=== PATIENT | female | born 1955 | race Caucasian/White ===

== ENCOUNTER 2016-04-26 15:01 | Inpatient (IN) | payer MEDICARE ==
[~2016-04-26] VITALS: Wt 86.2 kg
[~2016-04-26 15:01] MED LIST: ALDACTONE 25MG25 M1 PO; ALTACE 10MG TAB10 MG PO; AMANTADINE HCL100 M1 PO; ASPIRIN 32325 MG/TAB PO; CALTRATE-600 W600 MG PO; COPAXONE SL; COREG 25MG25 MG/TAB PO; COREG 6.256.25 MG/TA PO; FOLIC ACID; GABAPENTIN300 M1 PO; MULTIPLE VITAMI1 CAP PO; MVI; NEURONTIN300 MG/CAP PO; NORVASC 10MG10 MG PO; PROTONIX 40MG T40 MG PO; RAPINIROLE; REQUIP 0.5MG0.5 MG PO; REQUIP 1MG T1 MG/TAB PO; SAVELLA100 MG PO; TYLENOL 500MG500 MG PO; ZINC
[2016-04-26 15:49] LABS: BASO # 0.1 (0.0-0.2); BASO % 0.4 % (0.0-2.0); EOS # 0.1 (0.0-0.7); EOS % 1.1 % (0-4.0); GRAN # 8.8 (1.4-6.5); GRAN % 75.3 % (42.2-75.2); HEMATOCRIT 41.3 % (37.0-47.0); HEMOGLOBIN 13.5 g/dl (12.5-16.0); LYMPH # 1.5 (1.2-3.4); LYMPH % 13.3 % (20.0-51.0); MEAN CELL VOLUME 89 fl (80.0-100.0); MEAN CORPUSCULAR HEMOGLOBIN 29 pg (27.0-31.0); MEAN CORPUSCULAR HGB CONC 33 g/dl (33.0-37.0); MEAN PLATELET VOLUME 9.9 fl (7.4-10.4); MONO # 1.1 (0.1-0.6); MONO % 9.5 % (1.7-9.3); PLATELET COUNT 244 K/mm3 (130-400); RED BLOOD COUNT 4.62 M/mm3 (4.10-5.30); REDCELL DISTRIBUTION WIDTH-CV 12.2 % (11.5-14.5); WHITE BLOOD COUNT 11.6 K/mm3 (4.8-10.8)
[2016-04-26 16:10] LABS: ADJUSTED CALCIUM 9.2 mg/dL (8.4-10.2); BILIRUBIN,TOTAL 0.8 mg/dL (0.0-1.0); CALCIUM 9.2 mg/dL (8.4-10.2); CREATININE, serum 0.93 mg/dL (0.52-1.25); POTASSIUM 3.3 mmol/L (3.4-5.0); TOTAL PROTEIN 7.7 gm/dL (6.4-8.2)
[2016-04-26 19:22] LABS: TROPONIN-I 0.045 ng/mL (0.000-0.034)
[2016-04-26 20:05] VITALS: BP 129/59; PULSE 70; TEMP 100
[2016-04-26] MEDS ORDERED: NEURONTIN600 MG/TAB PO (20:32)
[2016-04-26 23:38] VITALS: BP 145/87; PULSE 118; TEMP 100.5
[2016-04-27 03:29] VITALS: BP 114/78; PULSE 99; TEMP 98.9
[2016-04-27 05:29] LABS: PH 7 (5-8); SQUAMOUS EPITHELIAL 0-2 /hpf; URINE APPEARANCE Clear; URINE BACTERIA None Seen /hpf; URINE BILIRUBIN Negative (NEGATIVE); URINE BLOOD 2+ (NEGATIVE); URINE COLOR Yellow; URINE GLUCOSE Negative (NEGATIVE); URINE KETONE Negative (NEGATIVE); URINE UROBILINOGEN Negative (NEGATIVE)
[2016-04-27 07:21] LABS: BASO # 0.1 (0.0-0.2); BASO % 0.6 % (0.0-2.0); EOS # 0.2 (0.0-0.7); EOS % 2.7 % (0-4.0); GRAN # 5.6 (1.4-6.5); GRAN % 67.4 % (42.2-75.2); HEMATOCRIT 37.5 % (37.0-47.0); LYMPH # 1.5 (1.2-3.4); LYMPH % 17.7 % (20.0-51.0); MEAN CELL VOLUME 91 fl (80.0-100.0); MEAN CORPUSCULAR HEMOGLOBIN 29 pg (27.0-31.0); MEAN CORPUSCULAR HGB CONC 32 g/dl (33.0-37.0); MEAN PLATELET VOLUME 10.1 fl (7.4-10.4); MONO # 0.9 (0.1-0.6); MONO % 11.2 % (1.7-9.3); PLATELET COUNT 212 K/mm3 (130-400); RED BLOOD COUNT 4.14 M/mm3 (4.10-5.30); REDCELL DISTRIBUTION WIDTH-CV 12.3 % (11.5-14.5); WHITE BLOOD COUNT 8.3 K/mm3 (4.8-10.8)
[2016-04-27 07:28] VITALS: BP 118/72; PULSE 104; TEMP 98.5
[2016-04-27 07:34] LABS: CALCIUM 8.6 mg/dL (8.4-10.2); CREATININE, serum 0.78 mg/dL (0.52-1.25)
[2016-04-27 07:44] LABS: TROPONIN-I 0.024 ng/mL (0.000-0.034)
[2016-04-27 12:14] VITALS: BP 107/79; PULSE 96; TEMP 98.4
[2016-04-27 15:56] VITALS: BP 114/62; PULSE 92; TEMP 97.9
[2016-04-27 19:27] VITALS: BP 124/81; PULSE 93; TEMP 97.2
[2016-04-27 23:48] VITALS: BP 134/67; PULSE 118
[2016-04-28 03:07] VITALS: BP 134/75; PULSE 102; TEMP 98.4
[2016-04-28 08:06] VITALS: BP 135/69; PULSE 103; TEMP 99
[2016-04-28 11:46] VITALS: BP 146/87; PULSE 98; TEMP 98
[2016-04-28] MEDS ORDERED: COUMADIN 5MG5 MG/TAB PO (14:22)
[2016-04-28] MEDS ORDERED: LOVENOX 100100 MG/ML SQ (14:24)
[2016-04-28] MEDS ORDERED: NORCO 325 MG-51 TAB PO (14:24)
[2016-04-28 16:08] VITALS: BP 138/70; PULSE 94; TEMP 99.1
[2016-04-29] MEDS ORDERED: REQUIP 1MG T1 MG/TAB PO (20:02)
[2016-04-29] MEDS ORDERED: REQUIP2 MG PO (20:02)
[2016-04-29] MEDS ORDERED: ADULT MULTIVIT1 EACH PO (20:03)
== END 2016-04-28 17:42 | disposition home or self-care (01) | DRG 300 ==
LOC: COL.ER 15:01 → MEDICAL 18:13
PROVIDERS: Emergency Medicine; Nurse Practitioner Family
DX: I82.B12 Acute embolism and thrombosis of left subclavian vein (principal); D68.51 Activated protein C resistance; G35 Multiple sclerosis; I10 Essential (primary) hypertension; Z95.0 Presence of cardiac pacemaker; E87.6 Hypokalemia
CPT/HCPCS: 99222-AI; 99239; C9113; G0378; J1170; J1650; J7030; Q9967

== ENCOUNTER 2016-04-29 18:39 | Inpatient (IN) | payer MEDICARE ==
[~2016-04-29] VITALS: Ht 172.7 cm; Wt 85.5 kg
[~2016-04-29 18:39] MED LIST changes: -ADULT MULTIVIT1 EACH PO; -BENTYL 10MG10 MG/CAP PO; -BYSTOLIC10 MG PO; -CLEOCIN HCL300 MG PO; -COUMADIN 22.5 MG/TAB PO; -ELIQUIS 5MG PO; -FLAGYL500 MG PO; -REQUIP2 MG PO
[2016-04-29] MEDS ORDERED: REQUIP2 MG PO (20:02)
[2016-04-29] MEDS ORDERED: REQUIP 1MG T1 MG/TAB PO (20:02)
[2016-04-29] MEDS ORDERED: ADULT MULTIVIT1 EACH PO (20:03)
[2016-04-29 21:05] LABS: SQUAMOUS EPITHELIAL 0-2 /hpf; URINE BACTERIA None Seen /hpf; URINE WBC 0-2 /hpf
[2016-04-29 21:10] LABS: PH 5 (5-8); URINE APPEARANCE Clear; URINE BILIRUBIN Negative (NEGATIVE); URINE BLOOD Negative (NEGATIVE); URINE COLOR Yellow; URINE GLUCOSE Negative (NEGATIVE); URINE KETONE Trace (NEGATIVE)
[2016-04-29 21:46] LABS: BASO # 0.1 (0.0-0.2); BASO % 0.3 % (0.0-2.0); EOS % 0.2 % (0-4.0); GRAN # 12.9 (1.4-6.5); GRAN % 84.6 % (42.2-75.2); LYMPH # 1.1 (1.2-3.4); LYMPH % 7.5 % (20.0-51.0); MEAN CELL VOLUME 90 fl (80.0-100.0); MEAN CORPUSCULAR HGB CONC 33 g/dl (33.0-37.0); MEAN PLATELET VOLUME 9.7 fl (7.4-10.4); MONO # 1.1 (0.1-0.6); PLATELET COUNT 241 K/mm3 (130-400); RED BLOOD COUNT 3.95 M/mm3 (4.10-5.30); REDCELL DISTRIBUTION WIDTH-CV 11.9 % (11.5-14.5); WHITE BLOOD COUNT 15.3 K/mm3 (4.8-10.8)
[2016-04-29 21:48] LABS: HEMATOCRIT 35.6 % (37.0-47.0); HEMOGLOBIN 11.7 g/dl (12.5-16.0); MEAN CORPUSCULAR HEMOGLOBIN 30 pg (27.0-31.0)
[2016-04-29 21:58] LABS: ALBUMIN 3.5 gm/dL (3.5-5.0); BILIRUBIN,TOTAL 0.7 mg/dL (0.0-1.0); C-REACTIVE PROTEIN 8.8 mg/dL (0.0-0.9); CALCIUM 8.6 mg/dL (8.4-10.2); CREATININE, serum 0.86 mg/dL (0.52-1.25); POTASSIUM 3.8 mmol/L (3.4-5.0); TOTAL PROTEIN 7.2 gm/dL (6.4-8.2)
[2016-04-30 00:18] VITALS: BP 97/53; PULSE 59; TEMP 99.3
[2016-04-30 05:22] VITALS: BP 132/56; PULSE 92; TEMP 99.3
[2016-04-30 07:27] LABS: INR 2.9 (0.8-3.0); PROTHROMBIN TIME 33.5 SECONDS (9.7-12.8)
[2016-04-30 07:56] VITALS: BP 119/56; PULSE 128; TEMP 100.7
[2016-04-30 11:56] VITALS: BP 120/56; PULSE 64; TEMP 100.9
[2016-04-30 16:15] VITALS: BP 136/64; PULSE 108; TEMP 98; TEMP 99.4
[2016-04-30 20:40] VITALS: BP 122/56; PULSE 65; TEMP 101.9
[2016-05-01] VITALS (7 sets, daily range): BP systolic 122–160; BP diastolic 55–94; PULSE 62–100; TEMP 97.9–100.7
[2016-05-01 06:55] LABS: BASO % 0.3 % (0.0-2.0); EOS # 0.2 (0.0-0.7); EOS % 2.5 % (0-4.0); GRAN # 6.7 (1.4-6.5); GRAN % 71.3 % (42.2-75.2); LYMPH # 1.3 (1.2-3.4); LYMPH % 14.1 % (20.0-51.0); MEAN CELL VOLUME 91 fl (80.0-100.0); MEAN CORPUSCULAR HGB CONC 32 g/dl (33.0-37.0); MEAN PLATELET VOLUME 10.2 fl (7.4-10.4); MONO # 1.1 (0.1-0.6); MONO % 11.4 % (1.7-9.3); PLATELET COUNT 202 K/mm3 (130-400); RED BLOOD COUNT 3.47 M/mm3 (4.10-5.30); REDCELL DISTRIBUTION WIDTH-CV 12.3 % (11.5-14.5); WHITE BLOOD COUNT 9.4 K/mm3 (4.8-10.8)
[2016-05-01 07:00] LABS: HEMATOCRIT 31.5 % (37.0-47.0); HEMOGLOBIN 10.2 g/dl (12.5-16.0); MEAN CORPUSCULAR HEMOGLOBIN 29 pg (27.0-31.0)
[2016-05-01 07:10] LABS: CALCIUM 7.2 mg/dL (8.4-10.2); CREATININE, serum 0.73 mg/dL (0.52-1.25); POTASSIUM 3.1 mmol/L (3.4-5.0)
[2016-05-01 07:23] LABS: INR 7.1 (0.8-3.0); PROTHROMBIN TIME 83.9 SECONDS (9.7-12.8)
[2016-05-02 04:36] VITALS: BP 143/78; PULSE 97; TEMP 98.2
[2016-05-02 07:45] LABS: BASO % 0.3 % (0.0-2.0); EOS # 0.5 (0.0-0.7); EOS % 5.3 % (0-4.0); GRAN # 6.9 (1.4-6.5); GRAN % 71.8 % (42.2-75.2); LYMPH # 1.4 (1.2-3.4); LYMPH % 14.2 % (20.0-51.0); MEAN CELL VOLUME 88 fl (80.0-100.0); MEAN CORPUSCULAR HGB CONC 33 g/dl (33.0-37.0); MONO # 0.8 (0.1-0.6); PLATELET COUNT 265 K/mm3 (130-400); RED BLOOD COUNT 4.04 M/mm3 (4.10-5.30); WHITE BLOOD COUNT 9.6 K/mm3 (4.8-10.8)
[2016-05-02 07:49] LABS: INR 1.8 (0.8-3.0); PROTHROMBIN TIME 20.7 SECONDS (9.7-12.8)
[2016-05-02 07:50] LABS: HEMATOCRIT 35.7 % (37.0-47.0); HEMOGLOBIN 11.6 g/dl (12.5-16.0); MEAN CORPUSCULAR HEMOGLOBIN 29 pg (27.0-31.0)
[2016-05-02 08:42] VITALS: BP 151/92; PULSE 103; TEMP 98.8
[2016-05-02 08:43] LABS: CALCIUM 8.4 mg/dL (8.4-10.2); CREATININE, serum 0.61 mg/dL (0.52-1.25); POTASSIUM 3.5 mmol/L (3.4-5.0)
[2016-05-02 12:00] VITALS: BP 128/71; PULSE 76; TEMP 97.9
[2016-05-02 16:19] VITALS: BP 143/62; PULSE 70; TEMP 97.4
[2016-05-02 20:47] VITALS: BP 140/59; PULSE 77; TEMP 97.8
[2016-05-03 00:13] VITALS: BP 139/72; PULSE 89; TEMP 98.3
[2016-05-03 03:22] VITALS: BP 138/72; PULSE 80; TEMP 97.1
[2016-05-03 09:06] VITALS: BP 136/80; PULSE 85; TEMP 98.1
[2016-05-03 11:20] LABS: CALCIUM 8.6 mg/dL (8.4-10.2); CREATININE, serum 0.63 mg/dL (0.52-1.25)
[2016-05-03 11:25] LABS: BASO % 0.7 % (0.0-2.0); EOS # 0.3 (0.0-0.7); EOS % 5.4 % (0-4.0); GRAN # 4.1 (1.4-6.5); GRAN % 68.8 % (42.2-75.2); HEMATOCRIT 38.4 % (37.0-47.0); HEMOGLOBIN 12.3 g/dl (12.5-16.0); INR 2.1 (0.8-3.0); LYMPH # 1.1 (1.2-3.4); LYMPH % 17.7 % (20.0-51.0); MEAN CELL VOLUME 89 fl (80.0-100.0); MEAN CORPUSCULAR HEMOGLOBIN 29 pg (27.0-31.0); MEAN CORPUSCULAR HGB CONC 32 g/dl (33.0-37.0); MEAN PLATELET VOLUME 9.9 fl (7.4-10.4); MONO # 0.4 (0.1-0.6); MONO % 6.6 % (1.7-9.3); PLATELET COUNT 350 K/mm3 (130-400); PROTHROMBIN TIME 23.9 SECONDS (9.7-12.8); RED BLOOD COUNT 4.31 M/mm3 (4.10-5.30); REDCELL DISTRIBUTION WIDTH-CV 12.1 % (11.5-14.5); WHITE BLOOD COUNT 5.9 K/mm3 (4.8-10.8)
[2016-05-03 11:28] LABS: POTASSIUM 2.7 mmol/L (3.4-5.0)
[2016-05-03 12:41] VITALS: BP 126/74; PULSE 106; TEMP 97.5
[2016-05-03 17:33] VITALS: BP 133/85; PULSE 99; TEMP 97
[2016-05-03 19:41] VITALS: BP 121/70; PULSE 92; TEMP 97.7
[2016-05-04 00:43] VITALS: BP 147/54; PULSE 74; TEMP 98.6
[2016-05-04 04:28] VITALS: BP 112/54; PULSE 109; TEMP 98.7
[2016-05-04 05:24] VITALS: BP 138/77; PULSE 77; TEMP 97.7
[2016-05-04 07:32] LABS: MEAN CELL VOLUME 89 fl (80.0-100.0); MEAN CORPUSCULAR HGB CONC 32 g/dl (33.0-37.0); PLATELET COUNT 370 K/mm3 (130-400); RED BLOOD COUNT 3.98 M/mm3 (4.10-5.30); REDCELL DISTRIBUTION WIDTH-CV 12.3 % (11.5-14.5); WHITE BLOOD COUNT 5.6 K/mm3 (4.8-10.8)
[2016-05-04 07:33] LABS: INR 2.3 (0.8-3.0); PROTHROMBIN TIME 25.8 SECONDS (9.7-12.8)
[2016-05-04 07:34] LABS: CALCIUM 8.8 mg/dL (8.4-10.2); CREATININE, serum 0.66 mg/dL (0.52-1.25); POTASSIUM 3.9 mmol/L (3.4-5.0)
[2016-05-04 07:37] LABS: ADD PATHOLOGY DIFF REVIEW NO; HEMATOCRIT 35.5 % (37.0-47.0); HEMOGLOBIN 11.4 g/dl (12.5-16.0); MEAN CORPUSCULAR HEMOGLOBIN 29 pg (27.0-31.0)
[2016-05-04 08:06] LABS: BAND 4 % (0-10); EOSINOPHIL 5 % (0-4); NEUTROPHILS 49 % (42.0-75.2); TOTAL CELLS COUNTED 100
[2016-05-04 08:37] VITALS: BP 141/74; PULSE 94; TEMP 97.9
[2016-05-04] MEDS ORDERED: BENTYL 10MG10 MG/CAP PO (10:44)
[2016-05-04] MEDS ORDERED: FLAGYL500 MG PO (10:44)
[2016-05-04] MEDS ORDERED: COUMADIN 22.5 MG/TAB PO (10:45)
[2016-05-04 12:02] VITALS: BP 149/92; PULSE 70
== END 2016-05-04 13:45 | disposition home or self-care (01) | DRG 300 ==
LOC: COL.ER 18:39 → MEDICAL 22:14
PROVIDERS: Emergency Medicine; Family Medicine; Internal Medicine; Internal Medicine Cardiovascular Disease; Nurse Practitioner Family
DX: I82.B12 Acute embolism and thrombosis of left subclavian vein (principal); D68.51 Activated protein C resistance; A04.7 Enterocolitis due to Clostridium difficile; I82.A12 Acute embolism and thrombosis of left axillary vein; I82.622 Acute embolism and thrombosis of deep veins of left upper extremity; I82.C12 Acute embolism and thrombosis of left internal jugular vein; I05.0 Rheumatic mitral stenosis; I10 Essential (primary) hypertension; Z95.0 Presence of cardiac pacemaker; L50.0 Allergic urticaria; T36.8X5A Adverse effect of other systemic antibiotics, initial encounter; E87.6 Hypokalemia
CPT/HCPCS: 99222-AI; 99232-AI; 99239; J0692; J0878; J1200; J1650; J2185; J2405; J3370; J7030; J7050

== ENCOUNTER → 2016-04-29 | Outpatient (CLI) | payer MEDICARE ==
[~2016-04-29] MED LIST changes: +ADULT MULTIVIT1 EACH PO; +BENTYL 10MG10 MG/CAP PO; +BYSTOLIC10 MG PO; +CLEOCIN HCL300 MG PO; +COUMADIN 22.5 MG/TAB PO; +COUMADIN 5MG5 MG/TAB PO; +ELIQUIS 5MG PO; +FLAGYL500 MG PO; +LOVENOX 100100 MG/ML SQ; +NEURONTIN600 MG/TAB PO; +NORCO 325 MG-51 TAB PO; +REQUIP2 MG PO
[2016-04-29 16:12] LABS: INR 1.4 (0.8-3.0); PROTHROMBIN TIME 15.1 SECONDS (9.7-12.8)
[2016-04-29 16:13] LABS: CREATININE, serum 0.91 mg/dL (0.52-1.25); POTASSIUM 4.2 mmol/L (3.4-5.0)
== END ==
LOC: COL.LAB 15:19
PROVIDERS: Physician Assistant
DX: E87.6 Hypokalemia (principal); I82.819 Embolism and thrombosis of superficial veins of unspecified lower extremity

== ENCOUNTER 2016-05-06 13:35 | Outpatient (RCR) | payer MEDICARE ==
[~2016-05-06 13:35] MED LIST changes: +ADULT MULTIVIT1 EACH PO; +BENTYL 10MG10 MG/CAP PO; +COUMADIN 22.5 MG/TAB PO; +FLAGYL500 MG PO; +REQUIP2 MG PO
[2016-05-06 14:01] LABS: INR 2.6 (0.8-3.0); PROTHROMBIN TIME 29.1 SECONDS (9.7-12.8)
== END 2016-08-04 | disposition still patient (30) ==
LOC: COL.LAB
PROVIDERS: Family Medicine
DX: R52 Pain, unspecified (principal)

== ENCOUNTER → 2016-06-05 | Outpatient (CLI) | payer MEDICARE ==
[~2016-06-05] MED LIST changes: +BYSTOLIC10 MG PO; +CLEOCIN HCL300 MG PO; +ELIQUIS 5MG PO
== END ==
LOC: COL.RAD 06-04 10:30
DX: G35 Multiple sclerosis (principal)
CPT/HCPCS: A9585

== ENCOUNTER → 2016-06-26 | Outpatient (CLI) | payer MEDICARE | LOC: COL.LAB 12:42 | DX: R53.83 Other fatigue (principal) ==

== ENCOUNTER → 2016-07-10 | Outpatient (CLI) | payer MEDICARE ==
[2016-07-10 10:18] LABS: CALCIUM 9.3 mg/dL (8.4-10.2); CREATININE, serum 0.86 mg/dL (0.52-1.25); POTASSIUM 3.2 mmol/L (3.4-5.0)
[2016-07-10 23:50] LABS: CORTISOL RANDOM 9 ug/dL (3-20)
[2016-07-11 18:41] LABS: POTASSIUM 3.2 mmol/L (3.4-5.0)
[2016-07-12 17:32] LABS: CREATININE URINE 41 mg/dL (())
[2016-07-12 18:28] LABS: CREATININE OTHER SOURCE 40 mg/dL (())
[2016-07-15 10:22] LABS: .METANEPHRINE <0.20 nmol/L (<0.50)
[2016-07-15 13:49] LABS: RENIN,PLASMA 1.1 ng/mL/h (())
== END ==
LOC: COL.VAS 08:00 → COL.LAB 08:04
PROVIDERS: Internal Medicine Interventional Cardiology
DX: I10 Essential (primary) hypertension (principal)

== ENCOUNTER 2016-07-28 15:00 | Outpatient (RCR) | payer MEDICARE ==
[~2016-07-28 15:00] MED LIST changes: -BYSTOLIC10 MG PO; -CLEOCIN HCL300 MG PO; -ELIQUIS 5MG PO
[2016-08-08] MEDS ORDERED: BYSTOLIC10 MG PO (12:06)
[2016-08-08] MEDS ORDERED: ELIQUIS 5MG PO (12:07)
[2016-08-08] MEDS ORDERED: CLEOCIN HCL300 MG PO (15:48)
== END 2016-08-07 09:46 | disposition home or self-care (01) ==
LOC: MKS.ESL.PT 15:00
DX: G35 Multiple sclerosis (principal); R25.2 Cramp and spasm
CPT/HCPCS: G8981-GP; G8982-GP; G8983-GP

== ENCOUNTER 2016-08-08 11:44 | Day surgery (SDC) | payer MEDICARE ==
[2016-08-08] VITALS (8 sets, daily range): BP systolic 117–152; BP diastolic 73–94; PULSE 65–81; TEMP 97.1–97.8
[~2016-08-08] VITALS: Ht 172.8 cm; Wt 82.7 kg
[2016-08-08] MEDS ORDERED: BYSTOLIC10 MG PO (12:06)
[2016-08-08] MEDS ORDERED: ELIQUIS 5MG PO (12:07)
[2016-08-08 12:44] LABS: INR 1.2 (0.8-3.0); PROTHROMBIN TIME 12.9 SECONDS (9.7-12.8)
[2016-08-08 13:05] LABS: HEMOGLOBIN 13.5 g/dl (12.5-16.0); MEAN CELL VOLUME 87 fl (80.0-100.0); MEAN CORPUSCULAR HEMOGLOBIN 29 pg (27.0-31.0); MEAN CORPUSCULAR HGB CONC 33 g/dl (33.0-37.0); MEAN PLATELET VOLUME 10.2 fl (7.4-10.4); PLATELET COUNT 232 K/mm3 (130-400); RED BLOOD COUNT 4.74 M/mm3 (4.10-5.30); REDCELL DISTRIBUTION WIDTH-CV 13.5 % (11.5-14.5); WHITE BLOOD COUNT 6.3 K/mm3 (4.8-10.8)
[2016-08-08 13:16] LABS: CALCIUM 9.5 mg/dL (8.4-10.2); CREATININE, serum 0.86 mg/dL (0.52-1.25); POTASSIUM 4.6 mmol/L (3.4-5.0)
[2016-08-08] MEDS ORDERED: CLEOCIN HCL300 MG PO (15:48)
== END 2016-08-08 17:24 | disposition home or self-care (01) ==
LOC: COL.CAR 11:44
PROVIDERS: Internal Medicine Interventional Cardiology
DX: I50.22 Chronic systolic (congestive) heart failure (principal); Z53.09 Procedure and treatment not carried out because of other contraindication; I82.622 Acute embolism and thrombosis of deep veins of left upper extremity; I10 Essential (primary) hypertension
CPT/HCPCS: C1894; J2250; J3010; J7030; Q9967

== ENCOUNTER → 2016-08-14 | Outpatient (CLI) | payer MEDICARE ==
[~2016-08-14] MED LIST changes: +BYSTOLIC10 MG PO; +CLEOCIN HCL300 MG PO; +ELIQUIS 5MG PO
[2016-08-14 11:52] LABS: ANION GAP 11 mmol/L (7-16); BLOOD UREA NITROGEN 17 mg/dL (7-17); CALCIUM 9.1 mg/dL (8.4-10.2); CARBON DIOXIDE 28 mmol/L (22-30); CHLORIDE 101 mmol/L (98-107); CREATININE, serum 0.83 mg/dL (0.52-1.25); GLUCOSE 89 mg/dL (74-106); POTASSIUM 3.9 mmol/L (3.4-5.0); SODIUM 141 mmol/L (137-145)
[2016-08-14 12:01] LABS: B-TYPE NATRIURETIC PEPTIDE 859 pg/mL (0-125)
[2016-08-14 12:05] LABS: TROPONIN-I < 0.012 ng/mL (0.000-0.034)
[2016-08-14 12:06] LABS: HEMATOCRIT 40.6 % (37.0-47.0); HEMOGLOBIN 13.4 g/dl (12.5-16.0); MEAN CELL VOLUME 87 fl (80.0-100.0); MEAN CORPUSCULAR HEMOGLOBIN 29 pg (27.0-31.0); MEAN CORPUSCULAR HGB CONC 33 g/dl (33.0-37.0); MEAN PLATELET VOLUME 10.2 fl (7.4-10.4); PLATELET COUNT 250 K/mm3 (130-400); RED BLOOD COUNT 4.65 M/mm3 (4.10-5.30); REDCELL DISTRIBUTION WIDTH-CV 13.3 % (11.5-14.5); WHITE BLOOD COUNT 5.4 K/mm3 (4.8-10.8)
== END ==
LOC: COL.RAD 09:57
PROVIDERS: Internal Medicine Interventional Cardiology
DX: R07.89 Other chest pain (principal)
CPT/HCPCS: Q9967

== ENCOUNTER → 2016-10-16 | Outpatient (CLI) | payer MEDICARE ==
[2016-10-16 08:56] LABS: CALCIUM 9.5 mg/dL (8.4-10.2); CREATININE, serum 1.08 mg/dL (0.52-1.25); MAGNESIUM 2.3 mg/dL (1.6-2.3); POTASSIUM 3.8 mmol/L (3.4-5.0)
== END ==
LOC: COL.LAB 08:08
PROVIDERS: Internal Medicine Cardiovascular Disease
DX: D86.85 Sarcoid myocarditis (principal); I40.8 Other acute myocarditis; I48.91 Unspecified atrial fibrillation

== ENCOUNTER → 2016-10-23 | Outpatient (CLI) | payer MEDICARE | LOC: MC.RAD 13:12 | DX: Z12.31 Encounter for screening mammogram for malignant neoplasm of breast (principal) ==

== ENCOUNTER → 2016-11-21 | Outpatient (CLI) | payer MEDICARE ==
[2016-11-21 11:19] LABS: BASO # 0.1 (0.0-0.2); BASO % 0.5 % (0.0-2.0); EOS # 0.2 (0.0-0.7); EOS % 1.5 % (0-4.0); GRAN # 6.1 (1.4-6.5); GRAN % 55.3 % (42.2-75.2); HEMATOCRIT 43.5 % (37.0-47.0); HEMOGLOBIN 13.5 g/dl (12.5-16.0); LYMPH # 3.8 (1.2-3.4); LYMPH % 34.2 % (20.0-51.0); MEAN CELL VOLUME 89 fl (80.0-100.0); MEAN CORPUSCULAR HEMOGLOBIN 28 pg (27.0-31.0); MEAN CORPUSCULAR HGB CONC 31 g/dl (33.0-37.0); MONO # 0.8 (0.1-0.6); MONO % 6.9 % (1.7-9.3); PLATELET COUNT 295 K/mm3 (130-400); REDCELL DISTRIBUTION WIDTH-CV 16.1 % (11.5-14.5)
[2016-11-21 11:31] LABS: ADJUSTED CALCIUM 8.9 mg/dL (8.4-10.2); ALBUMIN 4.4 gm/dL (3.5-5.0); BILIRUBIN,TOTAL 0.3 mg/dL (0.0-1.0); CALCIUM 9.2 mg/dL (8.4-10.2); CREATININE, serum 1.03 mg/dL (0.52-1.25); POTASSIUM 3.3 mmol/L (3.4-5.0); TOTAL PROTEIN 7.5 gm/dL (6.4-8.2)
== END ==
LOC: COL.LAB 10:15
PROVIDERS: Internal Medicine
DX: D86.9 Sarcoidosis, unspecified (principal); Z79.899 Other long term (current) drug therapy

== ENCOUNTER → 2017-01-02 | Outpatient (CLI) | payer MEDICARE ==
[2017-01-02 14:21] LABS: BASO % 0.5 % (0.0-2.0); EOS % 0.1 % (0-4.0); GRAN # 6.9 (1.4-6.5); HEMATOCRIT 42.7 % (37.0-47.0); HEMOGLOBIN 13.5 g/dl (12.5-16.0); LYMPH # 1.3 (1.2-3.4); LYMPH % 14.7 % (20.0-51.0); MEAN CELL VOLUME 91 fl (80.0-100.0); MEAN CORPUSCULAR HEMOGLOBIN 29 pg (27.0-31.0); MEAN CORPUSCULAR HGB CONC 32 g/dl (33.0-37.0); MEAN PLATELET VOLUME 9.7 fl (7.4-10.4); MONO # 0.3 (0.1-0.6); MONO % 3.9 % (1.7-9.3); PLATELET COUNT 283 K/mm3 (130-400); REDCELL DISTRIBUTION WIDTH-CV 16.6 % (11.5-14.5); WHITE BLOOD COUNT 8.7 K/mm3 (4.8-10.8)
[2017-01-02 14:31] LABS: ADJUSTED CALCIUM 8.8 mg/dL (8.4-10.2); ALBUMIN 4.6 gm/dL (3.5-5.0); BILIRUBIN,TOTAL 0.6 mg/dL (0.0-1.0); CALCIUM 9.3 mg/dL (8.4-10.2); CREATININE, serum 1.08 mg/dL (0.52-1.25); POTASSIUM 4.1 mmol/L (3.4-5.0); TOTAL PROTEIN 7.4 gm/dL (6.4-8.2)
== END ==
LOC: COL.LAB 13:14
PROVIDERS: Internal Medicine
DX: D86.9 Sarcoidosis, unspecified (principal); Z79.899 Other long term (current) drug therapy

== ENCOUNTER → 2017-01-30 | Outpatient (CLI) | payer MEDICARE ==
[2017-01-30 11:09] LABS: BASO % 0.4 % (0.0-2.0); EOS # 0.2 (0.0-0.7); GRAN # 3.8 (1.4-6.5); HEMATOCRIT 45.8 % (37.0-47.0); HEMOGLOBIN 14.5 g/dl (12.5-16.0); LYMPH # 3.4 (1.2-3.4); MEAN CELL VOLUME 94 fl (80.0-100.0); MEAN CORPUSCULAR HEMOGLOBIN 30 pg (27.0-31.0); MEAN CORPUSCULAR HGB CONC 32 g/dl (33.0-37.0); MEAN PLATELET VOLUME 9.6 fl (7.4-10.4); MONO # 0.6 (0.1-0.6); MONO % 7.7 % (1.7-9.3); PLATELET COUNT 295 K/mm3 (130-400); RED BLOOD COUNT 4.86 M/mm3 (4.10-5.30); WHITE BLOOD COUNT 8.1 K/mm3 (4.8-10.8)
[2017-01-30 11:19] LABS: ADJUSTED CALCIUM 9.1 mg/dL (8.4-10.2); ALBUMIN 4.4 gm/dL (3.5-5.0); BILIRUBIN,TOTAL 0.6 mg/dL (0.0-1.0); CALCIUM 9.4 mg/dL (8.4-10.2); CREATININE, serum 1.06 mg/dL (0.52-1.25); POTASSIUM 3.3 mmol/L (3.4-5.0); TOTAL PROTEIN 7.5 gm/dL (6.4-8.2)
== END ==
LOC: COL.LAB 10:24
PROVIDERS: Internal Medicine
DX: D86.9 Sarcoidosis, unspecified (principal); Z79.899 Other long term (current) drug therapy

== ENCOUNTER → 2017-03-03 | Outpatient (CLI) | payer MEDICARE ==
[2017-03-03 11:57] LABS: BASO % 0.5 % (0.0-2.0); EOS # 0.2 (0.0-0.7); EOS % 1.9 % (0-4.0); GRAN # 3.8 (1.4-6.5); GRAN % 47.7 % (42.2-75.2); HEMATOCRIT 43.8 % (37.0-47.0); HEMOGLOBIN 14.1 g/dl (12.5-16.0); LYMPH # 3.4 (1.2-3.4); LYMPH % 42.8 % (20.0-51.0); MEAN CELL VOLUME 94 fl (80.0-100.0); MEAN CORPUSCULAR HEMOGLOBIN 30 pg (27.0-31.0); MEAN CORPUSCULAR HGB CONC 32 g/dl (33.0-37.0); MONO # 0.5 (0.1-0.6); MONO % 6.3 % (1.7-9.3); PLATELET COUNT 290 K/mm3 (130-400); RED BLOOD COUNT 4.64 M/mm3 (4.10-5.30)
[2017-03-03 12:01] LABS: ADJUSTED CALCIUM 9.1 mg/dL (8.4-10.2); ALBUMIN 4.5 gm/dL (3.5-5.0); BILIRUBIN,TOTAL 0.6 mg/dL (0.0-1.0); CALCIUM 9.5 mg/dL (8.4-10.2); CREATININE, serum 1.22 mg/dL (0.52-1.25); POTASSIUM 3.5 mmol/L (3.4-5.0); TOTAL PROTEIN 7.2 gm/dL (6.4-8.2)
== END ==
LOC: COL.LAB 10:46
PROVIDERS: Internal Medicine
DX: D86.9 Sarcoidosis, unspecified (principal); Z79.899 Other long term (current) drug therapy

== ENCOUNTER → 2017-05-01 | Outpatient (CLI) | payer MEDICARE ==
[~2017-05-01] MED LIST changes: +K-DUR20 MEQ PO; +LASIX 20MG TABL20 MG PO; +TAMIFLU 75MG75 MG PO; +ULTRAM 50MG TAB50 MG PO; +ZEBETA10 MG PO; +ZOVIRAX 200MG200 MG PO
[2017-05-01 09:35] LABS: CALCIUM 9.6 mg/dL (8.4-10.2); CREATININE, serum 1.16 mg/dL (0.52-1.25); POTASSIUM 3.8 mmol/L (3.4-5.0)
== END ==
LOC: COL.LAB 08:49
PROVIDERS: Internal Medicine Interventional Cardiology
DX: I50.22 Chronic systolic (congestive) heart failure (principal)

== ENCOUNTER → 2017-05-01 | Outpatient (CLI) | payer MEDICARE ==
[2017-05-01 09:22] LABS: BASO # 0.1 (0.0-0.2); BASO % 1.1 % (0.0-2.0); EOS # 0.2 (0.0-0.7); EOS % 4.3 % (0-4.0); GRAN % 54.8 % (42.2-75.2); HEMATOCRIT 41.6 % (37.0-47.0); HEMOGLOBIN 13.4 g/dl (12.5-16.0); LYMPH # 1.6 (1.2-3.4); LYMPH % 29.4 % (20.0-51.0); MEAN CELL VOLUME 94 fl (80.0-100.0); MEAN CORPUSCULAR HEMOGLOBIN 30 pg (27.0-31.0); MEAN CORPUSCULAR HGB CONC 32 g/dl (33.0-37.0); MEAN PLATELET VOLUME 9.9 fl (7.4-10.4); MONO # 0.6 (0.1-0.6); MONO % 10.2 % (1.7-9.3); PLATELET COUNT 272 K/mm3 (130-400); RED BLOOD COUNT 4.43 M/mm3 (4.10-5.30); REDCELL DISTRIBUTION WIDTH-CV 12.8 % (11.5-14.5)
[2017-05-01 09:34] LABS: ALBUMIN 4.5 gm/dL (3.5-5.0); BILIRUBIN,TOTAL 0.5 mg/dL (0.0-1.0); CALCIUM 9.6 mg/dL (8.4-10.2); CREATININE, serum 1.19 mg/dL (0.52-1.25); POTASSIUM 3.7 mmol/L (3.4-5.0); TOTAL PROTEIN 7.1 gm/dL (6.4-8.2)
== END ==
LOC: COL.LAB 08:56
PROVIDERS: Internal Medicine
DX: D86.9 Sarcoidosis, unspecified (principal); Z79.899 Other long term (current) drug therapy; Z88.1 Allergy status to other antibiotic agents; Z88.5 Allergy status to narcotic agent; Z88.0 Allergy status to penicillin; Z88.8 Allergy status to other drugs, medicaments and biological substances

== ENCOUNTER → 2017-05-14 | Outpatient (CLI) | payer MEDICARE ==
[~2017-05-14] MED LIST changes: -K-DUR20 MEQ PO; -LASIX 20MG TABL20 MG PO; -TAMIFLU 75MG75 MG PO; -ULTRAM 50MG TAB50 MG PO; -ZEBETA10 MG PO; -ZOVIRAX 200MG200 MG PO
== END ==
LOC: COL.LAB 11:06
DX: M10.242 Drug-induced gout, left hand (principal)

== ENCOUNTER 2017-05-16 23:53 | Emergency (ER) | payer MEDICARE ==
[~2017-05-16] VITALS: Ht 172.7 cm; Wt 97.3 kg
[2017-05-16 23:57] VITALS: TEMP 101.6
[2017-05-17 00:58] LABS: BASO % 0.9 % (0.0-2.0); EOS # 0.1 (0.0-0.7); EOS % 2.8 % (0-4.0); GRAN # 3.7 (1.4-6.5); GRAN % 80.4 % (42.2-75.2); LYMPH # 0.3 (1.2-3.4); LYMPH % 7.3 % (20.0-51.0); MEAN CELL VOLUME 91 fl (80.0-100.0); MEAN CORPUSCULAR HEMOGLOBIN 30 pg (27.0-31.0); MEAN CORPUSCULAR HGB CONC 33 g/dl (33.0-37.0); MEAN PLATELET VOLUME 10.1 fl (7.4-10.4); MONO # 0.4 (0.1-0.6); MONO % 8.2 % (1.7-9.3); PLATELET COUNT 211 K/mm3 (130-400); RED BLOOD COUNT 4.41 M/mm3 (4.10-5.30); REDCELL DISTRIBUTION WIDTH-CV 12.3 % (11.5-14.5)
[2017-05-17 01:16] LABS: ALBUMIN 4.4 gm/dL (3.5-5.0); BILIRUBIN,TOTAL 0.3 mg/dL (0.0-1.0); C-REACTIVE PROTEIN 0.9 mg/dL (0.0-0.9); CALCIUM 9.2 mg/dL (8.4-10.2); CREATININE, serum 1.11 mg/dL (0.52-1.25); POTASSIUM 3.6 mmol/L (3.4-5.0); TOTAL PROTEIN 7.1 gm/dL (6.4-8.2)
[2017-05-17 02:19] LABS: COLLECTION METHOD CLEAN CATCH
[2017-05-17 02:44] LABS: MUCOUS Present /lpf; PH 8 (5-8); SQUAMOUS EPITHELIAL None Seen /hpf; URINE APPEARANCE Clear; URINE BACTERIA Rare /hpf; URINE BILIRUBIN Negative (NEGATIVE); URINE BLOOD 1+ (NEGATIVE); URINE COLOR Straw; URINE GLUCOSE Negative (NEGATIVE); URINE KETONE Negative (NEGATIVE); URINE LEUKOCYTE ESTERASE Trace (NEGATIVE); URINE NITRATE Negative (NEGATIVE); URINE PROTEIN(semi-quant) Negative (NEGATIVE); URINE UROBILINOGEN Negative (NEGATIVE)
[2017-05-17] MEDS ORDERED: TAMIFLU 75MG75 MG PO (03:06)
[2017-05-17 03:40] VITALS: BP 138/63
[2017-05-17] MEDS ORDERED: ZOVIRAX 200MG200 MG PO (03:57)
[2017-05-17] MEDS ORDERED: ULTRAM 50MG TAB50 MG PO ×2 (03:59)
[2017-05-17] MEDS ORDERED: ZEBETA10 MG PO (04:00)
[2017-05-17] MEDS ORDERED: LASIX 20MG TABL20 MG PO (04:01)
[2017-05-17] MEDS ORDERED: K-DUR20 MEQ PO (04:02)
[2017-05-17 04:18] VITALS: PULSE 106
== END 2017-05-17 04:18 | disposition home or self-care (01) ==
LOC: COL.ER 23:53
PROVIDERS: Emergency Medicine
DX: J40 Bronchitis, not specified as acute or chronic (principal); I10 Essential (primary) hypertension; D86.9 Sarcoidosis, unspecified; Z95.5 Presence of coronary angioplasty implant and graft; Z79.01 Long term (current) use of anticoagulants
CPT/HCPCS: J0696; J7030

== ENCOUNTER → 2017-06-10 | Outpatient (CLI) | payer MEDICARE ==
[~2017-06-10] MED LIST changes: +K-DUR20 MEQ PO; +LASIX 20MG TABL20 MG PO; +TAMIFLU 75MG75 MG PO; +ULTRAM 50MG TAB50 MG PO; +ZEBETA10 MG PO; +ZOVIRAX 200MG200 MG PO
[2017-06-10 16:52] LABS: BASO # 0.1 (0.0-0.2); BASO % 0.9 % (0.0-2.0); EOS # 0.3 (0.0-0.7); EOS % 5.4 % (0-4.0); GRAN # 3.1 (1.4-6.5); GRAN % 52.1 % (42.2-75.2); HEMOGLOBIN 13.2 g/dl (12.5-16.0); LYMPH # 1.7 (1.2-3.4); LYMPH % 29.1 % (20.0-51.0); MEAN CELL VOLUME 89 fl (80.0-100.0); MEAN CORPUSCULAR HEMOGLOBIN 29 pg (27.0-31.0); MEAN CORPUSCULAR HGB CONC 32 g/dl (33.0-37.0); MEAN PLATELET VOLUME 10.2 fl (7.4-10.4); MONO # 0.7 (0.1-0.6); MONO % 12.2 % (1.7-9.3); PLATELET COUNT 261 K/mm3 (130-400); RED BLOOD COUNT 4.59 M/mm3 (4.10-5.30); REDCELL DISTRIBUTION WIDTH-CV 12.6 % (11.5-14.5)
[2017-06-10 17:10] LABS: ALBUMIN 4.4 gm/dL (3.5-5.0); BILIRUBIN,TOTAL 0.4 mg/dL (0.0-1.0); CALCIUM 9.3 mg/dL (8.4-10.2); POTASSIUM 3.7 mmol/L (3.4-5.0); TOTAL PROTEIN 7.3 gm/dL (6.4-8.2)
== END ==
LOC: COL.LAB 15:27
PROVIDERS: Internal Medicine
DX: D86.9 Sarcoidosis, unspecified (principal); Z79.899 Other long term (current) drug therapy; Z88.6 Allergy status to analgesic agent; Z88.1 Allergy status to other antibiotic agents; Z88.5 Allergy status to narcotic agent; Z88.0 Allergy status to penicillin; Z88.8 Allergy status to other drugs, medicaments and biological substances

== ENCOUNTER → 2017-07-10 | Outpatient (CLI) | payer MEDICARE ==
[2017-07-10 12:12] LABS: BASO # 0.1 (0.0-0.2); BASO % 0.8 % (0.0-2.0); EOS # 0.6 (0.0-0.7); EOS % 9.6 % (0-4.0); GRAN # 3.8 (1.4-6.5); GRAN % 57.4 % (42.2-75.2); HEMATOCRIT 42.5 % (37.0-47.0); HEMOGLOBIN 13.2 g/dl (12.5-16.0); LYMPH # 1.5 (1.2-3.4); LYMPH % 22.7 % (20.0-51.0); MEAN CELL VOLUME 89 fl (80.0-100.0); MEAN CORPUSCULAR HEMOGLOBIN 28 pg (27.0-31.0); MEAN CORPUSCULAR HGB CONC 31 g/dl (33.0-37.0); MEAN PLATELET VOLUME 9.8 fl (7.4-10.4); MONO # 0.6 (0.1-0.6); MONO % 9.2 % (1.7-9.3); PLATELET COUNT 295 K/mm3 (130-400); RED BLOOD COUNT 4.78 M/mm3 (4.10-5.30)
[2017-07-10 12:23] LABS: ALBUMIN 3.9 gm/dL (3.5-5.0); BILIRUBIN,TOTAL 0.3 mg/dL (0.0-1.0); CALCIUM 9.1 mg/dL (8.4-10.2); CREATININE, serum 0.93 mg/dL (0.52-1.25); POTASSIUM 3.8 mmol/L (3.4-5.0); TOTAL PROTEIN 7.2 gm/dL (6.4-8.2)
== END ==
LOC: COL.LAB 11:22
PROVIDERS: Internal Medicine
DX: D86.9 Sarcoidosis, unspecified (principal); Z79.899 Other long term (current) drug therapy; Z88.6 Allergy status to analgesic agent; Z88.8 Allergy status to other drugs, medicaments and biological substances

== ENCOUNTER → 2017-08-18 | Outpatient (CLI) | payer MEDICARE ==
[2017-08-18 13:11] LABS: CALCIUM 9.2 mg/dL (8.4-10.2); CREATININE, serum 1.44 mg/dL (0.52-1.25)
== END ==
LOC: COL.LAB 12:33
PROVIDERS: Internal Medicine
DX: I50.22 Chronic systolic (congestive) heart failure (principal)

== ENCOUNTER → 2017-09-15 | Outpatient (CLI) | payer MEDICARE ==
[2017-09-15 10:55] LABS: BASO # 0.1 (0.0-0.2); BASO % 0.9 % (0.0-2.0); EOS # 0.3 (0.0-0.7); EOS % 5.8 % (0-4.0); GRAN # 3.4 (1.4-6.5); GRAN % 60.8 % (42.2-75.2); HEMATOCRIT 39.1 % (37.0-47.0); HEMOGLOBIN 12.6 g/dl (12.5-16.0); LYMPH # 1.3 (1.2-3.4); LYMPH % 22.7 % (20.0-51.0); MEAN CELL VOLUME 85 fl (80.0-100.0); MEAN CORPUSCULAR HEMOGLOBIN 27 pg (27.0-31.0); MEAN CORPUSCULAR HGB CONC 32 g/dl (33.0-37.0); MEAN PLATELET VOLUME 11.1 fl (7.4-10.4); MONO # 0.5 (0.1-0.6); MONO % 9.4 % (1.7-9.3); PLATELET COUNT 227 K/mm3 (130-400); RED BLOOD COUNT 4.61 M/mm3 (4.10-5.30); REDCELL DISTRIBUTION WIDTH-CV 15.9 % (11.5-14.5)
[2017-09-15 11:05] LABS: ALBUMIN 3.8 gm/dL (3.5-5.0); BILIRUBIN,TOTAL 0.4 mg/dL (0.0-1.0); CALCIUM 9.6 mg/dL (8.4-10.2); CREATININE, serum 1.18 mg/dL (0.52-1.25); POTASSIUM 4.3 mmol/L (3.4-5.0); TOTAL PROTEIN 7.4 gm/dL (6.4-8.2)
== END ==
LOC: COL.LAB 10:06
PROVIDERS: Internal Medicine
DX: D86.9 Sarcoidosis, unspecified (principal); Z79.899 Other long term (current) drug therapy

== ENCOUNTER 2017-10-02 04:14 | Emergency (ER) | payer MEDICARE ==
[~2017-10-02] VITALS: Ht 172.7 cm; Wt 82.9 kg
[~2017-10-02 04:14] MED LIST changes: -LASIX 20MG TABL20 MG PO; +LASIX 40MG TABL40 MG PO
[2017-10-02 04:19] VITALS: TEMP 97.1
[2017-10-02 04:39] LABS: BASO % 0.3 % (0.0-2.0); EOS # 0.1 (0.0-0.7); GRAN # 6.2 (1.4-6.5); GRAN % 72.4 % (42.2-75.2); HEMATOCRIT 39.5 % (37.0-47.0); HEMOGLOBIN 12.8 g/dl (12.5-16.0); LYMPH # 1.5 (1.2-3.4); LYMPH % 17.2 % (20.0-51.0); MEAN CELL VOLUME 86 fl (80.0-100.0); MEAN CORPUSCULAR HEMOGLOBIN 28 pg (27.0-31.0); MEAN CORPUSCULAR HGB CONC 32 g/dl (33.0-37.0); MONO # 0.8 (0.1-0.6); MONO % 8.8 % (1.7-9.3); PLATELET COUNT 226 K/mm3 (130-400); RED BLOOD COUNT 4.62 M/mm3 (4.10-5.30); REDCELL DISTRIBUTION WIDTH-CV 16.3 % (11.5-14.5)
[2017-10-02 04:44] LABS: INR 1.3 (0.8-3.0); PROTHROMBIN TIME 14.7 SECONDS (9.7-12.8)
[2017-10-02 04:47] LABS: PARTIAL THROMBOPLASTIN TIME 35.3 SECONDS (26.0-37.0)
[2017-10-02] MEDS ORDERED: XARELTO20 MG PO (04:47)
[2017-10-02] MEDS ORDERED: PROTONIX 40MG T40 MG PO (04:47)
[2017-10-02 04:48] LABS: ALANINE AMINOTRANSFERASE 27 U/L (9-52); ALBUMIN 3.9 gm/dL (3.5-5.0); ALKALINE PHOSPHATASE 84 U/L (50-136); ANION GAP 12 mmol/L (7-16); AST,SGOT 19 U/L (15-37); BILIRUBIN,TOTAL 0.5 mg/dL (0.0-1.0); BLOOD UREA NITROGEN 19 mg/dL (7-17); CALCIUM 9.5 mg/dL (8.4-10.2); CARBON DIOXIDE 29 mmol/L (22-30); CHLORIDE 98 mmol/L (98-107); CREATININE, serum 1.13 mg/dL (0.52-1.25); GLUCOSE 125 mg/dL (74-106); POTASSIUM 3.8 mmol/L (3.4-5.0); SODIUM 139 mmol/L (137-145); TOTAL PROTEIN 8.1 gm/dL (6.4-8.2)
[2017-10-02 05:18] LABS: TROPONIN-I < 0.012 ng/mL (0.000-0.034)
[2017-10-02 10:35] VITALS: BP 115/83; PULSE 96
== END 2017-10-02 10:38 | disposition short-term general hospital (02) ==
LOC: COL.ER 04:14
PROVIDERS: Emergency Medicine
DX: J90 Pleural effusion, not elsewhere classified (principal); I31.3 Pericardial effusion (noninflammatory)
CPT/HCPCS: J7030; Q9967

== ENCOUNTER → 2017-11-19 | Emergency (ER) | payer MEDICARE ==
[~2017-11-19] VITALS: Ht 170.2 cm; Wt 82.3 kg
[~2017-11-19] MED LIST changes: +FOLIC ACID 11 MG/TA1 PO; +LASIX 20MG TABL20 MG PO; -LASIX 40MG TABL40 MG PO; +METHOTREXA2.5 MG/TAB PO; +PREDNISONE20 MG PO; +XARELTO20 MG PO
[2017-11-19 01:48] VITALS: TEMP 97
[2017-11-19 02:02] LABS: BASO # 0.1 (0.0-0.2); BASO % 0.6 % (0.0-2.0); EOS # 0.2 (0.0-0.7); EOS % 1.8 % (0-4.0); GRAN # 7.3 (1.4-6.5); GRAN % 67.9 % (42.2-75.2); HEMATOCRIT 38.7 % (37.0-47.0); HEMOGLOBIN 12.5 g/dl (12.5-16.0); LYMPH # 2.1 (1.2-3.4); LYMPH % 19.9 % (20.0-51.0); MEAN CELL VOLUME 89 fl (80.0-100.0); MEAN CORPUSCULAR HEMOGLOBIN 29 pg (27.0-31.0); MEAN CORPUSCULAR HGB CONC 32 g/dl (33.0-37.0); MEAN PLATELET VOLUME 9.8 fl (7.4-10.4); MONO % 9.1 % (1.7-9.3); PLATELET COUNT 254 K/mm3 (130-400); RED BLOOD COUNT 4.33 M/mm3 (4.10-5.30); REDCELL DISTRIBUTION WIDTH-CV 16.2 % (11.5-14.5)
[2017-11-19 02:12] LABS: ALANINE AMINOTRANSFERASE 29 U/L (9-52); ALBUMIN 3.8 gm/dL (3.5-5.0); ALKALINE PHOSPHATASE 80 U/L (50-136); ANION GAP 10 mmol/L (7-16); AST,SGOT 18 U/L (15-37); BILIRUBIN,TOTAL 0.3 mg/dL (0.0-1.0); BLOOD UREA NITROGEN 38 mg/dL (7-17); CALCIUM 8.8 mg/dL (8.4-10.2); CARBON DIOXIDE 31 mmol/L (22-30); CHLORIDE 98 mmol/L (98-107); CREATININE, serum 1.26 mg/dL (0.52-1.25); GLUCOSE 101 mg/dL (74-106); POTASSIUM 3.5 mmol/L (3.4-5.0); SODIUM 140 mmol/L (137-145); TOTAL PROTEIN 6.9 gm/dL (6.4-8.2)
[2017-11-19 02:24] LABS: TROPONIN-I < 0.012 ng/mL (0.000-0.034)
[2017-11-19 04:30] VITALS: BP 116/81; PULSE 91
== END ==
LOC: COL.ER 01:41
PROVIDERS: Emergency Medicine
DX: R06.02 Shortness of breath (principal); R07.1 Chest pain on breathing; Z86.718 Personal history of other venous thrombosis and embolism; Z79.891 Long term (current) use of opiate analgesic; Z79.01 Long term (current) use of anticoagulants
CPT/HCPCS: J2270

== ENCOUNTER → 2017-12-04 | Outpatient (CLI) | payer MEDICARE ==
[2017-12-04 11:18] LABS: BASO % 0.3 % (0.0-2.0); EOS % 0.2 % (0-4.0); GRAN # 9.4 (1.4-6.5); GRAN % 83.5 % (42.2-75.2); HEMATOCRIT 44.5 % (37.0-47.0); HEMOGLOBIN 14.1 g/dl (12.5-16.0); LYMPH # 1.3 (1.2-3.4); LYMPH % 11.3 % (20.0-51.0); MEAN CELL VOLUME 92 fl (80.0-100.0); MEAN CORPUSCULAR HEMOGLOBIN 29 pg (27.0-31.0); MEAN CORPUSCULAR HGB CONC 32 g/dl (33.0-37.0); MEAN PLATELET VOLUME 9.7 fl (7.4-10.4); MONO # 0.5 (0.1-0.6); MONO % 4.1 % (1.7-9.3); PLATELET COUNT 350 K/mm3 (130-400); RED BLOOD COUNT 4.85 M/mm3 (4.10-5.30); REDCELL DISTRIBUTION WIDTH-CV 15.6 % (11.5-14.5)
[2017-12-04 11:21] LABS: BILIRUBIN,TOTAL 0.3 mg/dL (0.0-1.0); CREATININE, serum 0.98 mg/dL (0.52-1.25); POTASSIUM 4.2 mmol/L (3.4-5.0); TOTAL PROTEIN 7.4 gm/dL (6.4-8.2)
== END ==
LOC: COL.LAB 10:24
PROVIDERS: Internal Medicine
DX: Z51.81 Encounter for therapeutic drug level monitoring (principal); I51.4 Myocarditis, unspecified; Z79.899 Other long term (current) drug therapy

== ENCOUNTER → 2018-01-08 | Outpatient (CLI) | payer MEDICARE ==
[2018-01-08 11:12] LABS: BASO % 0.6 % (0.0-2.0); EOS # 0.2 (0.0-0.7); GRAN # 3.8 (1.4-6.5); HEMATOCRIT 42.1 % (37.0-47.0); HEMOGLOBIN 13.1 g/dl (12.5-16.0); LYMPH # 2.4 (1.2-3.4); LYMPH % 34.3 % (20.0-51.0); MEAN CELL VOLUME 94 fl (80.0-100.0); MEAN CORPUSCULAR HEMOGLOBIN 29 pg (27.0-31.0); MEAN CORPUSCULAR HGB CONC 31 g/dl (33.0-37.0); MEAN PLATELET VOLUME 9.9 fl (7.4-10.4); MONO # 0.5 (0.1-0.6); MONO % 6.7 % (1.7-9.3); PLATELET COUNT 256 K/mm3 (130-400)
[2018-01-08 11:23] LABS: ALBUMIN 3.8 gm/dL (3.5-5.0); BILIRUBIN,TOTAL 0.4 mg/dL (0.0-1.0); CALCIUM 8.8 mg/dL (8.4-10.2); CREATININE, serum 0.98 mg/dL (0.52-1.25); POTASSIUM 3.2 mmol/L (3.4-5.0); TOTAL PROTEIN 6.8 gm/dL (6.4-8.2)
== END ==
LOC: COL.LAB 10:41
PROVIDERS: Internal Medicine
DX: Z51.81 Encounter for therapeutic drug level monitoring (principal); I51.4 Myocarditis, unspecified; Z79.899 Other long term (current) drug therapy

== ENCOUNTER → 2018-01-26 | Outpatient (CLI) | payer MEDICARE | LOC: MC.RAD 11:06 | DX: Z12.31 Encounter for screening mammogram for malignant neoplasm of breast (principal) ==

== ENCOUNTER → 2018-02-10 | Outpatient (CLI) | payer MEDICARE | LOC: COL.LAB 16:00 | DX: M10.472 Other secondary gout, left ankle and foot (principal) ==

== ENCOUNTER → 2018-02-10 | Outpatient (CLI) | payer MEDICARE ==
[2018-02-10 16:35] LABS: BASO # 0.1 (0.0-0.2); BASO % 0.6 % (0.0-2.0); EOS # 0.1 (0.0-0.7); EOS % 1.4 % (0-4.0); GRAN # 7.7 (1.4-6.5); GRAN % 81.8 % (42.2-75.2); HEMATOCRIT 45.4 % (37.0-47.0); HEMOGLOBIN 14.5 g/dl (12.5-16.0); LYMPH # 1.1 (1.2-3.4); LYMPH % 11.5 % (20.0-51.0); MEAN CELL VOLUME 92 fl (80.0-100.0); MEAN CORPUSCULAR HEMOGLOBIN 29 pg (27.0-31.0); MEAN CORPUSCULAR HGB CONC 32 g/dl (33.0-37.0); MEAN PLATELET VOLUME 9.7 fl (7.4-10.4); MONO # 0.4 (0.1-0.6); MONO % 4.4 % (1.7-9.3); PLATELET COUNT 284 K/mm3 (130-400); RED BLOOD COUNT 4.95 M/mm3 (4.10-5.30); REDCELL DISTRIBUTION WIDTH-CV 13.3 % (11.5-14.5)
[2018-02-10 16:47] LABS: ALBUMIN 4.2 gm/dL (3.5-5.0); BILIRUBIN,TOTAL 0.4 mg/dL (0.0-1.0); CALCIUM 9.1 mg/dL (8.4-10.2); CREATININE, serum 1.08 mg/dL (0.52-1.25); POTASSIUM 3.7 mmol/L (3.4-5.0); TOTAL PROTEIN 7.6 gm/dL (6.4-8.2)
== END ==
LOC: COL.LAB 16:04
PROVIDERS: Internal Medicine
DX: Z51.81 Encounter for therapeutic drug level monitoring (principal); I51.4 Myocarditis, unspecified; Z79.899 Other long term (current) drug therapy

== ENCOUNTER → 2018-05-12 | Outpatient (CLI) | payer MEDICARE ==
[2018-05-12 14:50] LABS: BILIRUBIN,TOTAL 0.3 mg/dL (0.0-1.0); CALCIUM 9.4 mg/dL (8.4-10.2); CREATININE, serum 1.12 mg/dL (0.52-1.25); TOTAL PROTEIN 7.6 gm/dL (6.4-8.2)
== END ==
LOC: COL.LAB 13:53
PROVIDERS: Family Medicine
DX: R06.02 Shortness of breath (principal)

== ENCOUNTER → 2018-06-18 | Outpatient (CLI) | payer MEDICARE ==
[2018-06-18 12:19] LABS: BASO # 0.1 (0.0-0.2); EOS # 0.4 (0.0-0.7); EOS % 5.9 % (0-4.0); GRAN # 3.9 (1.4-6.5); GRAN % 64.6 % (42.2-75.2); HEMATOCRIT 42.6 % (37.0-47.0); HEMOGLOBIN 13.5 g/dl (12.5-16.0); LYMPH # 1.4 (1.2-3.4); LYMPH % 22.3 % (20.0-51.0); MEAN CELL VOLUME 87 fl (80.0-100.0); MEAN CORPUSCULAR HEMOGLOBIN 28 pg (27.0-31.0); MEAN CORPUSCULAR HGB CONC 32 g/dl (33.0-37.0); MONO # 0.4 (0.1-0.6); MONO % 5.9 % (1.7-9.3); PLATELET COUNT 295 K/mm3 (130-400); RED BLOOD COUNT 4.88 M/mm3 (4.10-5.30); REDCELL DISTRIBUTION WIDTH-CV 14.4 % (11.5-14.5)
[2018-06-18 12:25] LABS: ALBUMIN 4.2 gm/dL (3.5-5.0); BILIRUBIN,TOTAL 0.4 mg/dL (0.0-1.0); CALCIUM 9.1 mg/dL (8.4-10.2); CREATININE, serum 1.1 mg/dL (0.52-1.25); POTASSIUM 3.4 mmol/L (3.4-5.0); TOTAL PROTEIN 7.6 gm/dL (6.4-8.2)
== END ==
LOC: COL.LAB 11:32
PROVIDERS: Family Medicine
DX: Z51.81 Encounter for therapeutic drug level monitoring (principal); D86.9 Sarcoidosis, unspecified; Z79.899 Other long term (current) drug therapy

== ENCOUNTER → 2018-08-30 | Outpatient (CLI) | payer MEDICARE | LOC: COL.RAD 14:28 | DX: Z01.811 Encounter for preprocedural respiratory examination (principal); J98.4 Other disorders of lung; Z87.09 Personal history of other diseases of the respiratory system; R59.0 Localized enlarged lymph nodes; Z95.0 Presence of cardiac pacemaker; Z90.12 Acquired absence of left breast and nipple; Z90.49 Acquired absence of other specified parts of digestive tract ==

== ENCOUNTER 2018-09-03 13:12 | Day surgery (SDC) | payer MEDICARE ==
[2018-09-03] VITALS (10 sets, daily range): BP systolic 103–147; BP diastolic 40–97; PULSE 78–98; TEMP 98.7
[~2018-09-03] VITALS: Ht 170.3 cm; Wt 85.0 kg
[2018-09-03 13:47] LABS: HEMATOCRIT 45.5 % (37.0-47.0); HEMOGLOBIN 14.6 g/dl (12.5-16.0); MEAN CELL VOLUME 88 fl (80.0-100.0); MEAN CORPUSCULAR HEMOGLOBIN 28 pg (27.0-31.0); MEAN CORPUSCULAR HGB CONC 32 g/dl (33.0-37.0); MEAN PLATELET VOLUME 9.8 fl (7.4-10.4); PLATELET COUNT 281 K/mm3 (130-400); PROTHROMBIN TIME 11.7 SECONDS (9.7-12.8); RED BLOOD COUNT 5.18 M/mm3 (4.10-5.30); REDCELL DISTRIBUTION WIDTH-CV 13.8 % (11.5-14.5)
[2018-09-03] MEDS ORDERED: LOVENOX 8080 MG/0.8 SQ (13:54)
[2018-09-03 13:56] LABS: CALCIUM 9.5 mg/dL (8.4-10.2); CREATININE, serum 1.09 (0.52-1.25); POTASSIUM 3.8 mmol/L (3.4-5.0)
[2018-09-03] MEDS ORDERED: ZOVIRAX800 MG PO (14:39)
[2018-09-03] MEDS ORDERED: ALTACE 5MG5 MG PO (14:43)
[2018-09-03 19:46] LABS: ARTERIAL BLD GAS O2 SATURATION 90.8 % (92-100); ARTERIAL BLD GAS TCO2 CT 26.3; ARTERIAL BLOOD GAS BASE EXCESS 1.4 (-2-2); ARTERIAL BLOOD GAS HCO3 25.2 meq/L (22-26); ARTERIAL BLOOD GAS PO2 60.5 mmHg (80-100); ARTERIAL BLOOD GAS pH 7.45 (7.35-7.45)
--- NOTE | 2018-09-03 20:17 | NUR ---
pt arrived to room 314 from [facility]. Set up with vitals machine, VSS, denies pain, pt alert and oriented x4. Discussed flat time 2 hours, then release radial site by 5 cc. Lungs clear, abdominal sounds hypoactive, pulses +3, cap refill <3 seconds. Right radial site- no bleeding, no hematoma.
--- NOTE | 2018-09-03 21:50 | NUR ---
5 cc air released from right radial site, now at 7 cc left, no bleeding/hematoma noted.
--- NOTE | 2018-09-03 22:29 | NUR ---
5 cc out from right radial site- 2 cc remaining. No signs of bleeding/hematoma
--- NOTE | 2018-09-03 23:00 | NUR ---
2 cc removed from right radial site, 0 cc remaining. no bleeding/hematoma noted.
--- NOTE | 2018-09-03 23:08 | NUR ---
pt discharged with spouse accompanied by [facility] staff. iv site removed. right radial site no bleeding/hematoma, vitals stable.
== END 2018-09-03 23:09 | disposition home or self-care (01) ==
LOC: COL.CAR 13:12
PROVIDERS: Internal Medicine Interventional Cardiology
DX: R94.39 Abnormal result of other cardiovascular function study (principal); I11.0 Hypertensive heart disease with heart failure; I50.22 Chronic systolic (congestive) heart failure; D86.0 Sarcoidosis of lung; Z79.01 Long term (current) use of anticoagulants; Z95.810 Presence of automatic (implantable) cardiac defibrillator; I48.0 Paroxysmal atrial fibrillation; Z88.5 Allergy status to narcotic agent; Z88.0 Allergy status to penicillin; Z88.1 Allergy status to other antibiotic agents; Z88.8 Allergy status to other drugs, medicaments and biological substances; Z88.6 Allergy status to analgesic agent
CPT/HCPCS: C1769; J1644; J2250; J3010; Q9967

== ENCOUNTER → 2020-01-09 | Outpatient (CLI) | payer MEDICARE ==
[~2020-01-09] MED LIST changes: +ALTACE 5MG5 MG PO; +LOVENOX 8080 MG/0.8 SQ; +ZOVIRAX800 MG PO
== END ==
LOC: MC.RAD 13:23
DX: Z12.31 Encounter for screening mammogram for malignant neoplasm of breast (principal); Z90.11 Acquired absence of right breast and nipple; Z98.890 Other specified postprocedural states; R92.0 Mammographic microcalcification found on diagnostic imaging of breast

== ENCOUNTER → 2020-01-13 | Outpatient (CLI) | payer MEDICARE | LOC: MC.RAD 13:00 | DX: R92.0 Mammographic microcalcification found on diagnostic imaging of breast (principal); N64.89 Other specified disorders of breast; Z98.890 Other specified postprocedural states ==

== ENCOUNTER → 2021-12-09 | Outpatient (CLI) | payer MEDICARE | LOC: MC.RAD 13:00 | DX: Z12.31 Encounter for screening mammogram for malignant neoplasm of breast (principal); N64.89 Other specified disorders of breast ==